=== PATIENT | female | born 1990 | race African-American/Black ===

== ENCOUNTER 2017-06-15 23:40 | Outpatient (CLI) | payer SELFPAY ==
[~2017-06-15] VITALS: Ht 162.6 cm; Wt 97.7 kg
[~2017-06-15 23:40] MED LIST: IBUP-1223 PO
[2017-06-16 00:21] LABS: MICROSCOPIC INDICATED
[2017-06-16 00:26] LABS: AMPHETAMINE SCREEN, URINE Positive (Negative); BARBITURATE SCREEN, URINE Negative (Negative); BENZODIAZEPINE SCREEN, URINE Negative (Negative); CANNABINOID SCREEN, URINE Negative (Negative); COCAINE SCREEN, URINE Negative (Negative); METHADONE SCREEN, URINE Negative (Negative); OPIATE SCREEN, URINE Positive (Negative)
[2017-06-16] MEDS ORDERED: CEFTRIAXONE 250 MG IM ONE (00:30)
[2017-06-16] MEDS ORDERED: AZITHROMYCIN 500 MG TABLET PO ONE (01:00)
== END 2017-06-16 01:28 | disposition home or self-care (01) ==
LOC: LDOP 23:40
PROVIDERS: ATTEND Obstetrics & Gynecology
DX: O26.892 Other specified pregnancy related conditions, second trimester (principal); O99.332 Smoking (tobacco) complicating pregnancy, second trimester; R10.9 Unspecified abdominal pain; Z3A.28 28 weeks gestation of pregnancy
CPT/HCPCS: 59025; 76805; 80307; 81001; 87086; 96372; 99211; J0696; G0463

== ENCOUNTER 2017-07-03 23:59 | Outpatient (CLI) | payer MEDICAID ==
[2017-07-04 00:41] LABS: AMPHETAMINE SCREEN, URINE Positive (Negative); BARBITURATE SCREEN, URINE Negative (Negative); BENZODIAZEPINE SCREEN, URINE Negative (Negative); CANNABINOID SCREEN, URINE Negative (Negative); COCAINE SCREEN, URINE Negative (Negative); METHADONE SCREEN, URINE Negative (Negative); MICROSCOPIC INDICATED; OPIATE SCREEN, URINE Negative (Negative)
[2017-07-04 00:42] VITALS: BP 135/65
== END 2017-07-04 01:00 | disposition home or self-care (01) ==
LOC: LDOP 23:59
PROVIDERS: ATTEND Obstetrics & Gynecology
DX: O26.893 Other specified pregnancy related conditions, third trimester (principal); R10.9 Unspecified abdominal pain; Z3A.31 31 weeks gestation of pregnancy
CPT/HCPCS: 59025; 80307; 81001; 87086; 99211; G0463

== ENCOUNTER 2017-07-04 01:08 | Emergency (ER) | payer MEDICAID ==
[2017-07-04 01:40] VITALS: BP 135/63
== END 2017-07-04 04:16 | disposition left against medical advice (07) ==
LOC: ED 04:10
DX: M54.5 Low back pain (principal); Z53.21 Procedure and treatment not carried out due to patient leaving prior to being seen by health care provider

== ENCOUNTER 2017-08-16 17:35 | Outpatient (CLI) | payer MEDICAID ==
[~2017-08-16] VITALS: Ht 162.6 cm; Wt 90.9 kg
[2017-08-16] MEDS ORDERED: ONDANSETRON ODT 4 MG PO ONE (18:00)
[2017-08-16] MEDS ORDERED: LACTATED RINGERS 1,000 ML IV SCH (18:00)
[2017-08-16] MEDS ORDERED: LACTATED RINGERS 1,000 ML IVBOLUS ONE (18:00)
[2017-08-16] MEDS ORDERED: ONDANSETRON ODT 4 MG ONE (18:00)
[2017-08-16 18:08] LABS: CULTURE INDICATED? YES; MICROSCOPIC INDICATED
[2017-08-16 18:10] VITALS: BP 128/72
[2017-08-16 18:19] LABS: AMPHETAMINE SCREEN, URINE Positive (Negative); BARBITURATE SCREEN, URINE Negative (Negative); BENZODIAZEPINE SCREEN, URINE Negative (Negative); CANNABINOID SCREEN, URINE Negative (Negative); COCAINE SCREEN, URINE Negative (Negative); METHADONE SCREEN, URINE Negative (Negative); OPIATE SCREEN, URINE Negative (Negative)
[2017-08-16 20:29] LABS: BASOPHILS # (AUTO) 0.06 x10^3/uL (0-0.1); BASOPHILS % (AUTO) 0 % (0-1); EOSINOPHILS # (AUTO) 0.01 x10^3/uL (0-0.4); EOSINOPHILS % (AUTO) 0 % (1-7); LYMPHOCYTES % (AUTO) 12 % (22-44); MD NO; MEAN CORPUSCULAR HEMOGLOBIN 27.7 pg (27.0-34.8); MEAN CORPUSCULAR VOLUME 83.9 fL (80-100); MONOCYTES # (AUTO) 0.57 x10^3/uL (0.2-0.8); MONOCYTES % (AUTO) 4 % (2-9); NEUTROPHILS % (AUTO) 83 % (42-75); PLATELET COUNT 280 x10^3/uL (130-400); RED BLOOD COUNT 4.29 x10^6/uL (3.82-5.3); RED CELL DISTRIBUTION WIDTH 14.1 % (9.6-15.2)
== END 2017-08-16 20:20 | disposition home or self-care (01) ==
LOC: LDOP 17:35 → UNDOADMOB 17:56 → LDIP 17:56 → EDIP 17:56
PROVIDERS: ADMIT Obstetrics & Gynecology; ATTEND Obstetrics & Gynecology
DX: O26.893 Other specified pregnancy related conditions, third trimester (principal); R10.9 Unspecified abdominal pain; Z3A.37 37 weeks gestation of pregnancy
CPT/HCPCS: 36415; 59025; 80307; 81001; 85025; 86592; 86762; 86850; 86900; 87081; 87086; 87340; 87806; 96360; G0378; J7120; Q0162; G0475

== ENCOUNTER 2018-06-22 16:35 | Emergency (ER) | payer MEDICAID ==
[~2018-06-22] VITALS: Ht 162.6 cm; Wt 89.0 kg
[2018-06-22 16:49] VITALS: BP 130/76
[2018-06-22] MEDS ORDERED: DEXAMETHASONE 4 MG/ML, 1ML PO ONE (17:00)
[2018-06-22] MEDS ORDERED: DEXAMETHASONE 4 MG TABLET ONE (17:09)
[2018-06-22] MEDS ORDERED: PENICILLIN VK 500MG TABLET PO ONE (17:30)
[2018-06-22] MEDS ORDERED: DEXAMETHASONE 4 MG TABLET PO ONE (17:30)
[2018-06-22] MEDS ORDERED: PENICILLIN VK 500MG TABLET ONE (18:00)
== END 2018-06-22 18:16 | disposition home or self-care (01) ==
LOC: ED 18:10
DX: J02.9 Acute pharyngitis, unspecified (principal); R05 Cough
CPT/HCPCS: 87880; 99283

== ENCOUNTER 2018-08-22 17:51 | Emergency (ER) | payer MEDICAID ==
[~2018-08-22] VITALS: Ht 162.6 cm; Wt 91.9 kg
[2018-08-22 17:59] VITALS: BP 138/79
--- NOTE | 2018-08-22 18:33 | NUR ---
Patient given discharge instructions and they have confirmed that they understand the instructions. Patient ambulatory with steady gait.
== END 2018-08-22 18:33 | disposition home or self-care (01) ==
LOC: ED 18:27
DX: Z02.5 Encounter for examination for participation in sport (principal); F17.200 Nicotine dependence, unspecified, uncomplicated; Z90.49 Acquired absence of other specified parts of digestive tract
CPT/HCPCS: 99281

== ENCOUNTER 2020-05-14 18:48 | Emergency (ER) | payer MEDICAID ==
[~2020-05-14] VITALS: Ht 165.1 cm; Wt 94.1 kg
[2020-05-14] MEDS ORDERED: AZITHROMYCIN 500 MG TABLET ONE (19:22)
[2020-05-14] MEDS ORDERED: CEFTRIAXONE 250 MG ONE (19:22)
[2020-05-14] MEDS ORDERED: CEFTRIAXONE 250 MG IM ONE (19:30)
[2020-05-14] MEDS ORDERED: AZITHROMYCIN 500 MG TABLET PO ONE (19:30)
--- NOTE | 2020-05-14 20:02 | NUR ---
PT RESTING COMFORTABLY WITH FAMILY AT BEDSIDE.
[2020-05-14 20:08] LABS: MEAN CORPUSCULAR HEMOGLOBIN 30.9 pg (27.0-34.8); MEAN CORPUSCULAR HGB CONC 33.8 g/dL (32.4-35.8); MEAN PLATELET VOLUME 9.1 fL (7.4-10.4); PLATELET COUNT 256 x10^3/uL (130-400); RED BLOOD COUNT 4.81 x10^6/uL (3.82-5.3); RED CELL DISTRIBUTION WIDTH 13.3 % (9.6-15.2)
[2020-05-14 20:19] LABS: ALBUMIN 3.6 g/dL (3.4-5.0); ANION GAP 7 mmol/L (5-15); CHLORIDE 103 mmol/L (98-107)
[2020-05-14 20:24] LABS: ALANINE AMINOTRANSFERASE 41 U/L (12-78); ALKALINE PHOSPHATASE 83 U/L (45-117); BILIRUBIN,TOTAL 1.4 mg/dL (0.2-1.0); CREATININE 0.91 mg/dL (0.55-1.02); TOTAL PROTEIN 8.3 g/dL (6.4-8.2)
[2020-05-14 20:26] LABS: MICROSCOPIC INDICATED
[2020-05-14 20:36] VITALS: BP 129/79
--- NOTE | 2020-05-14 20:37 | NUR ---
US AT BEDSIDE
[2020-05-14 20:44] LABS: MD YES
[2020-05-14 20:46] LABS: LYMPH#(MANUAL) 1.52 x10^3/uL (1-3.4); LYMPHS% (MANUAL) 11 % (22-44); MONOS#(MANUAL) 0.41 x10^3/uL (0.3-2.7); MONOS% (MANUAL) 3 % (2-9); SEG#(MANUAL) 11.87 x10^3/uL (1.8-6.8); SEGS% (MANUAL) 86 % (42-75)
[2020-05-14 20:47] LABS: <PLATELET ESTIMATE> ADEQUATE
[2020-05-14 20:48] LABS: <PLT MORPHOLOGY> NORMAL PLT MORPH
[2020-05-14 20:50] LABS: <RBC MORPHOLOGY> NORMAL
--- NOTE | 2020-05-14 21:00 | NUR ---
REPORT FROM ELLE VERGARA. PT RESTING IN [facility].
[2020-05-14] MEDS ORDERED: CEFTRIAXONE PMX 1GM/50ML 50 ML ONE (21:47)
--- NOTE | 2020-05-14 21:55 | NUR ---
PT NO LONGER IN ROOM 23, UNABLE TO LOCATE PT. JABARI GRANDE AWARE.
[2020-05-14] MEDS ORDERED: CEFTRIAXONE PMX 1GM/50ML 50 ML IVPB ONE (22:00)
[2020-05-14] MEDS ORDERED: SODIUM CHLORIDE FLUSH 10ML SYR IVF ONE (22:00)
[2020-05-14] MEDS ORDERED: SODIUM CHLORIDE 0.9% 1,000ML IVBOLUS ONE (22:00)
== END 2020-05-14 22:03 | disposition left against medical advice (07) ==
LOC: ED 19:30
DX: N10 Acute pyelonephritis (principal); N39.0 Urinary tract infection, site not specified; R00.0 Tachycardia, unspecified; Z90.49 Acquired absence of other specified parts of digestive tract
CPT/HCPCS: 36415; 76830; 80053; 81001; 84703; 85025; 87077; 87086; 87186; 87491; 87591; 93005; 96372; 99285; J0696; 99284

== ENCOUNTER 2020-05-15 13:32 | Emergency (ER) | payer MEDICAID ==
[~2020-05-15] VITALS: Ht 162.6 cm; Wt 93.9 kg
--- NOTE | 2020-05-15 14:33 | NUR ---
Late entry summary note: First contact with pt, pt and significant other both in [facility]. Pt states she smokes meth, most recently 2 days ago. Pt states she left yesterday because her pain was getting better, but that the pain came back right as she was leaving. Pt educated not to leave until all test are resulted so we can treat her. Pt communicated understanding. Pt complains of right side abd and flank pain. Ambulatory to bathroom for UA with steady gait. Call light in reach. Awaiting orders, will continue to monitor.
[2020-05-15 14:51] LABS: MICROSCOPIC INDICATED
[2020-05-15] MEDS ORDERED: KETOROLAC 30 MG/1 ML IVPush ONE (15:00)
[2020-05-15] MEDS ORDERED: ONDANSETRON 2MG/ML, 2ML ONE (15:00)
[2020-05-15] MEDS ORDERED: ONDANSETRON 2MG/ML, 2ML IVPush ONE (15:00)
[2020-05-15] MEDS ORDERED: SODIUM CHLORIDE FLUSH 10ML SYR IVF ONE (15:00)
[2020-05-15] MEDS ORDERED: CEFTRIAXONE PMX 2GM/50ML 50 ML IVPB SCH (15:00)
[2020-05-15] MEDS ORDERED: CEFTRIAXONE PMX 2GM/50ML 50 ML ONE (15:00)
[2020-05-15] MEDS ORDERED: KETOROLAC 30 MG/1 ML ONE (15:00)
[2020-05-15] MEDS ORDERED: SODIUM CHLORIDE 0.9% 1,000ML IVBOLUS ONE (15:00)
[2020-05-15 16:02] VITALS: BP 128/76
== END 2020-05-15 16:16 | disposition home or self-care (01) ==
LOC: ED 13:55
DX: N30.00 Acute cystitis without hematuria (principal); R10.31 Right lower quadrant pain; R00.0 Tachycardia, unspecified; R51.9 Headache, unspecified
CPT/HCPCS: 74176; 81001; 87086; 93005; 96365; 96375; 99285; J0696; J1885; J7030

== ENCOUNTER 2020-10-08 11:36 | Emergency (ER) | payer MEDICAID ==
[~2020-10-08] VITALS: Ht 162.6 cm; Wt 91.9 kg
[2020-10-08 12:01] VITALS: BP 154/91
[2020-10-08] MEDS ORDERED: HYDROcodone/APAP 5/325 TABLET ONE (13:25)
[2020-10-08] MEDS ORDERED: HYDROcodone/APAP 5/325 TABLET PO ONE (13:30)
== END 2020-10-08 14:03 | disposition home or self-care (01) ==
LOC: ED 13:42
DX: K02.9 Dental caries, unspecified (principal); F17.210 Nicotine dependence, cigarettes, uncomplicated; Z90.49 Acquired absence of other specified parts of digestive tract
CPT/HCPCS: 99283; 99406